=== PATIENT | male | born 1965 | race Caucasian/White ===

== ENCOUNTER → 2020-06-14 07:44 | Outpatient (CLI) | payer OTHER, SELFPAY ==
[2020-06-14] MEDS: COVID-19 VACC #1, MRNA(MOD) 100 MCG/0.5 ML VIAL IM (07:53)
== END ==
PROVIDERS: Visit Provider Internal Medicine
DX: Z23 Encounter for immunization (principal)
CPT/HCPCS: 0011A; 91301

== ENCOUNTER → 2020-07-12 07:29 | Outpatient (CLI) | payer OTHER, SELFPAY ==
[2020-07-12] MEDS: COVID-19 VACC #2, MRNA(MOD) 100 MCG/0.5 ML VIAL IM (07:44)
== END ==
PROVIDERS: Visit Provider Internal Medicine
DX: Z23 Encounter for immunization (principal)
CPT/HCPCS: 0012A; 91301